=== PATIENT | female | born 1980 | race African-American/Black ===

== ENCOUNTER 2017-06-27 14:47 | Emergency (ER) | payer SELFPAY ==
[2017-06-27] MEDS ORDERED: DIPH/PERTUSS(ACELL)/TETANUS VAC/PF 0.5 ML SYR (>=10YO) IM ONE (15:12)
[2017-06-27] MEDS ORDERED: LIDOCAINE 1% INJ-PF (10 MG/ML) 30 ML SDV INJ ONE (15:12)
[2017-06-27] MEDS ORDERED: IBUPROFEN 800 MG TABLET PO ONE (15:12)
[2017-06-27] MEDS ORDERED: LIDOCAINE 4%/TETRACAINE 0.5%/EPI 0.18% 5 ML TOPICAL SOLN TOP ONE (15:12)
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
[2017-06-27 16:41] VITALS: BP 123/63
== END 2017-06-27 16:42 | disposition home or self-care (01) ==
LOC: ER 14:47
PROC: 0HQ1XZZ Repair Face Skin, External Approach (ICD-10-PCS; principal; 2017-06-27)
DX: S01.81XA Laceration without foreign body of other part of head, initial encounter (principal); W20.8XXA Other cause of strike by thrown, projected or falling object, initial encounter; Z23 Encounter for immunization
CPT/HCPCS: 99282; 90471; 90715; 12011; J3490 ×2

== ENCOUNTER 2019-07-24 09:06 | Emergency (ER) | payer OTHER ==
--- NOTE | 2019-07-24 09:24 | ER Document Report ---
ED Medical Screen (RME) - General Chief Complaint: Near Syncope Stated Complaint: NEAR SYNCOPE/AFTER GIVING PLASMA Time Seen by Provider: 07/24/19 09:20 Mode of Arrival: Ambulatory Information source: Patient Notes: 39-year-old female presented to ED today for complaint of dizziness when she went to give plasma on Tuesday. She states that her fourth time giving plasma and she goes about every 4 months or so. She states given the plasma on Tuesday she went to pump gas and she got very dizzy had to sit on the passenger seat, she became very sweaty sat there for an hour because she could not drive herself and has no family to drive her. She states after now she started to call the ambulance because she thought that was too long to had need to sit in the car and she was very sweaty but she finally got back to herself and she drove home but she was very tired and she laid down and slept for a while. She states she is concerned because this is not the first time she became very lightheaded and almost passed out and she would like to know what is going on. I have greeted and performed a rapid initial assessment of this patient. A comprehensive ED assessment and evaluation of the patient, analysis of test results and completion of medical decision making process will be conducted by an additional ED providers. TRAVEL OUTSIDE OF THE [place] IN LAST 30 DAYS: No - Related Data Allergies/Adverse Reactions: No Known Allergies Allergy (Unverified 08/19/14 11:51) Past Medical History Renal/ Medical History: Denies: Hx Peritoneal Dialysis - Immunizations Hx Diphtheria, Pertussis, Tetanus Vaccination: Yes - received during this Physical Exam - Vital signs Vitals: Temp Pulse Resp BP Pulse Ox 98.1 F 73 18 111/61 100 07/24/19 09:14 07/24/19 09:14 07/24/19 09:14 07/24/19 09:14 07/24/19 09:14 Course - Vital Signs Vital signs: Temp Pulse Resp BP Pulse Ox 98.1 F 73 18 111/61 100 07/24/19 09:14 07/24/19 09:14 07/24/19 09:14 07/24/19 09:14 07/24/19 09:14
[2019-07-24 10:03] LABS: ABSOLUTE EOSINOPHILS # (AUTO) 0.2 10^3/uL (0.0-0.6); ABSOLUTE LYMPHOCYTES (AUTO) 2.5 10^3/uL (0.5-4.7); ABSOLUTE MONOCYTES (AUTO) 0.2 10^3/uL (0.1-1.4); ABSOLUTE NEUT (AUTO) 4.2 10^3/uL (1.7-8.2); BASOPHILS % (AUTO) 0.5 % (0-2); EOSINOPHILS % (AUTO) 3.4 % (0-6); HEMOGLOBIN 14.6 g/dL (12.0-15.5); LYMPHOCYTES % (AUTO) 35.1 % (13-45); MEAN CORPUSCULAR HEMOGLOBIN 29.8 pg (27.0-33.4); MEAN CORPUSCULAR HGB CONC 33.9 g/dL (32.0-36.0); MEAN CORPUSCULAR VOLUME 88 fl (80-97); MONOCYTES % (AUTO) 2.5 % (3-13); PLATELET COUNT 187 10^3/uL (150-450); RED BLOOD COUNT 4.88 10^6/uL (3.72-5.28); RED CELL DISTRIBUTION WIDTH 13.9 % (11.5-14.0); SEGMENTED NEUTROPHILS % (AUTO) 58.5 % (42-78); TOTAL CELLS COUNTED % (AUTO) 100 %; WHITE BLOOD COUNT 7.1 10^3/uL (4.0-10.5)
[2019-07-24 10:07] LABS: APPEARANCE,URINE CLEAR; BILIRUBIN,URINE NEGATIVE (NEGATIVE); COLOR,URINE YELLOW; GLUCOSE, URINE NEGATIVE (NEGATIVE); KETONES,URINE NEGATIVE (NEGATIVE); PROTEIN,URINE NEGATIVE (NEGATIVE); URINE SPECIFIC GRAVITY 1.017; UROBILINOGEN,URINE NEGATIVE mg/dL (<2.0)
[2019-07-24 10:21] LABS: ALBUMIN 4.4 g/dL (3.5-5.0); ALKALINE PHOSPHATASE 58 U/L (38-126); ANION GAP 10 (5-19); ASPARTATE AMINO TRANSFERASE 19 U/L (14-36); BILIRUBIN,DIRECT 0.2 mg/dL (0.0-0.4); BILIRUBIN,TOTAL 0.4 mg/dL (0.2-1.3); BLOOD UREA NITROGEN 12 mg/dL (7-20); CALCIUM 10.4 mg/dL (8.4-10.2); CARBON DIOXIDE 26 mmol/L (22-30); CHLORIDE 102 mmol/L (98-107); GLUCOSE 124 mg/dL (75-110); POTASSIUM 4.2 mmol/L (3.6-5.0); TOTAL PROTEIN 7.7 g/dL (6.3-8.2)
--- NOTE | 2019-07-24 10:25 | ER Document Report ---
ED Dizziness/Weakness - General Chief Complaint: Dizziness Stated Complaint: NEAR SYNCOPE/AFTER GIVING PLASMA Time Seen by Provider: 07/24/19 09:20 Mode of Arrival: Ambulatory TRAVEL OUTSIDE OF THE [place] IN LAST 30 DAYS: No - Related Data Allergies/Adverse Reactions: No Known Allergies Allergy (Unverified 08/19/14 11:51) Past Medical History - General Information source: Patient - Social History Smoking Status: Never Smoker Frequency of alcohol use: None Drug Abuse: None Family History: Reviewed & Not Pertinent Patient has suicidal ideation: No Patient has homicidal ideation: No Renal/ Medical History: Denies: Hx Peritoneal Dialysis - Immunizations Hx Diphtheria, Pertussis, Tetanus Vaccination: Yes - received during this Physical Exam - Vital signs Vitals: Temp Pulse Resp BP Pulse Ox 98.1 F 73 18 111/61 100 07/24/19 09:14 07/24/19 09:14 07/24/19 09:14 07/24/19 09:14 07/24/19 09:14 Course - Vital Signs Vital signs: Temp Pulse Resp BP Pulse Ox 98.1 F 73 18 111/61 100 07/24/19 09:14 07/24/19 09:14 07/24/19 09:14 07/24/19 09:14 07/24/19 09:14 - Laboratory Result Diagrams: 07/24/19 09:38 07/24/19 09:38 Laboratory results interpreted by me: 07/24/19 09:38 [place] % (Auto) 2.5 L
[2019-07-24] MEDS ORDERED: NORMAL SALINE 1000 ML 1,000 ML IV ONE (10:54)
--- NOTE | 2019-07-24 11:09 | ER Document Report ---
ED General - General Chief Complaint: Dizziness Stated Complaint: NEAR SYNCOPE/AFTER GIVING PLASMA Time Seen by Provider: 07/24/19 09:20 Mode of Arrival: Ambulatory Notes: HPI: 39-year-old female that states after giving blood she was getting gas and started to feel lightheaded, nauseous, was hot and sweaty, and sat down in the back of her car. She has had a syncopal episode in the past. No fevers or vomiting. No weakness or numbness. No chest pain or palpitations. Patient feels better at this time. Patient denies any lightheadedness at this time. She denies any vertigo-like symptoms. ROS: See HPI All other review of systems reviewed and otherwise negative Reviewed vital signs and nursing note as charted by RN. PHYSICAL EXAM: CONSTITUTIONAL: Alert and oriented and responds appropriately to questions. Well-appearing; well-nourished HEAD: Normocephalic; atraumatic EYES: PERRL; no nystagmus ENT: Normal nose; no rhinorrhea; moist mucous membranes; pharynx without lesions noted NECK: Supple without meningismus; non-tender; no cervical lymphadenopathy, no masses CARD: Regular rate and rhythm; no murmurs; symmetric distal pulses RESP: Normal chest excursion without splinting or tachypnea; breath sounds clear and equal bilaterally ABD/GI: Normal bowel sounds; non-distended; soft, non-tender EXT: No edema SKIN: No acute lesions noted NEURO: CN 2-12 intact; 5/5 bilateral upper and lower extremity strength with sensation intact to light touch PSYCH: The patient's mood and manner are appropriate. Grooming and personal hygiene are appropriate. TRAVEL OUTSIDE OF THE [place] IN LAST 30 DAYS: No - Related Data Allergies/Adverse Reactions: No Known Allergies Allergy (Unverified 08/19/14 11:51) Past Medical History - General Information source: Patient - Social History Smoking Status: Never Smoker Frequency of alcohol use: None Drug Abuse: None Family History: Reviewed & Not Pertinent Patient has suicidal ideation: No Patient has homicidal ideation: No Renal/ Medical History: Denies: Hx Peritoneal Dialysis - Immunizations Hx Diphtheria, Pertussis, Tetanus Vaccination: Yes - received during this Physical Exam - Vital signs Vitals: Temp Pulse Resp BP Pulse Ox 98.1 F 73 18 111/61 100 07/24/19 09:14 07/24/19 09:14 07/24/19 09:14 07/24/19 09:14 07/24/19 09:14 Course - Re-evaluation Re-evalutation: 07/24/19 11:08 Given the history and physical examination, we will obtain an EKG, provide fluids, and reassess. Labs were ordered in triage. Given the symptomatology as above, I do believe this is most likely a vasovagal reaction. I do believe ACS, PE, dissection, or intracranial lesion to be extraordinarily unlikely. 07/24/19 11:09 EKG shows heart rate of 73, normal sinus rhythm, minimal LVH, no ST elevation or depression. Nonspecific flattening of T waves laterally. 07/24/19 12:54 Labs as recorded. Patient still denies any pain. No vomiting, numbness or weakness. Given the above history and physical, patient will be discharged home with strict return precautions and follow-up with primary care provider. - Vital Signs Vital signs: Temp Pulse Resp BP Pulse Ox 98.1 F 73 18 111/61 100 07/24/19 09:14 07/24/19 09:14 07/24/19 09:14 07/24/19 09:14 07/24/19 09:14 - Laboratory Result Diagrams: 07/24/19 09:38 07/24/19 09:38 Laboratory results interpreted by me: 07/24/19 07/24/19 09:38 09:38 [place] % (Auto) 2.5 L Glucose 124 H Calcium 10.4 H Discharge - Discharge Clinical Impression: Near syncope Condition: Good Disposition: HOME, SELF-CARE Additional Instructions: Come back immediately with any chest pain, palpitations, weakness or numbness, fevers or vomiting, or any other acute problems. Please make sure you follow-up with the primary care provider for reassessment as discussed.
[2019-07-24 13:20] VITALS: BP 129/71
--- NOTE | 2019-07-24 13:57 | EKG REPORT ---
SEVERITY:- BORDERLINE ECG - SINUS RHYTHM LVH BY VOLTAGE : Confirmed by: Dillan Best MD 24-Jul-2019 13:56:41
== END 2019-07-24 13:20 | disposition home or self-care (01) ==
LOC: ER 09:06
DX: R42 Dizziness and giddiness (principal); R11.0 Nausea; R61 Generalized hyperhidrosis
CPT/HCPCS: 93005; 99284; 96360; 36415; 84702; 83690; 85025; 80053; 81001; 93010; J7030